=== PATIENT | female | born 1955 | race Caucasian/White ===

== ENCOUNTER 2021-12-29 23:05 | Observation (INO) ==
[2021-12-30] MEDS ORDERED: SODIUM CHLORIDE 0.9% 1000ML 500 ML IV ONE (00:22)
[2021-12-30] MEDS ORDERED: ONDANSETRON INJ 2 MG/ML 2 ML VIAL IV STA (00:22)
[2021-12-30] MEDS ORDERED: MoRPHine SULFATE 2 MG/ML CARP IV STA (00:22)
--- NOTE | 2021-12-30 00:24 | Emergency Department Note ---
Impression & Plan Acute appendicitis ADMIT ED Provider Note HPI: The patient is a 66-year-old female who presents the emergency department chief complaint of mid abdominal pain and nausea that is been ongoing throughout the afternoon today. Patient denies any episodes of vomiting. Denies any diarrhea. She states the pain is been relatively persistent. She states that she has had this pain in the past although it usually resolves relatively quickly, she states today it was constant and did not remit and therefore she came to the emergency department for further evaluation. Patient states the pain is in her mid abdomen, back, and radiates somewhat from her right flank area to the right lower quadrant. On arrival to the ED the patient is hypertensive but otherwise in no acute distress, she is saturating well on room air, she is afebrile on arrival. 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, no scleral erythema Pulmonary: Clear to auscultation bilaterally, no wheezing Cardio: Regular rate and rhythm GI: Abdomen is soft, moderate tenderness over the mid abdomen without guarding or rigidity : No suprapubic tenderness MSK: No evidence of trauma or malformation of the extremities, no edema Skin: No evidence of rash Neuro: Alert, no focal deficits Psychiatric: Cooperative upper marker: - An order was placed for continuous cardiac monitoring - Patient was noted to be in sinus rhythm with rate of 65 EKG: Rate: 58 Rhythm: Sinus rhythm Intervals: Within normal limits ST changes: No ST elevation Time: 0025 CT ABDOMEN & PELVIS With Contrast: Findings concerning for acute appendicitis with appendix measuring 10 mm in thickness at its tip with adjacent stranding. No evidence of perforation or abscess. No evidence of mucocele. Consider surgical consultation. No other acute findings. Radiologist: Enzo Armas MD Study ready at 02:23 and initial results transmitted at 02:58 Medical Decision Making: Patient presented to the emergency department with some upper abdominal discomfort as well as nausea. IV was established, lab work obtained, patient was given IV morphine and IV Zofran for her symptoms as well as IV fluids. CT imaging of the abdomen and pelvis with IV contrast shows evidence of acute appendicitis. Patient was given IV cefoxitin for infection prophylaxis. I discussed all the above findings with the patient, discussed with on-call general surgery midlevel provider, Marlon Christian, who did evaluate the patient at the bedside. Patient will be admitted to the general surgery service under the attending physician, Bridger Medina, for further care. Patient was in agreement to the above plan and she was admitted in stable condition. Diagnosis: 1. Acute appendicitis 2. Abdominal pain 3. Nausea Disposition: Admission Alberto Stern DO Emergency Medicine Past Med/Surg History Social History Smoking Status: Never smoker Preferred Language: Jamaican Feels Safe at Home: Yes Allergies Allergies Allergy/AdvReac Type Severity Reaction Status Date / Time No Known Allergies Allergy Verified 12/30/21 00:31 Home Meds Home Medications Medication Instructions Recorded Confirmed No Known Home Medications 12/30/21 12/30/21 Results & Data (ED) Vital Signs Vital Signs - 24 hr 12/29/21 23:11 12/30/21 00:49 12/30/21 02:00 Temperature 36.5 C Temperature Source Temporal Artery Scan Pulse Rate 70 Pulse Rate [Right Finger] 59 L 64 Respiratory Rate 18 20 20 Respiratory Effort / Characteristics Non-Labored Non-Labored Spontaneous Non-Labored Spontaneous Respiratory Depth Normal Normal Normal Respiratory Pattern Regular Regular Blood Pressure 164/108 H Blood Pressure [Right Arm] 185/95 H 182/101 H Blood Pressure Mean 126 Blood Pressure Mean [Right Arm] 125 128 Blood Pressure Position Sitting Blood Pressure Position [Right Arm] Sitting Sitting Pulse Oximetry 96 98 96 Oxygen Delivery Method Room Air Room Air Room Air Sepsis Recent Fever Within 48 Hours No Sepsis New/Unexplained Change in Mental Status No Sepsis Action Taken by Nursing No Action Required 12/30/21 03:31 Temperature Temperature Source Pulse Rate Pulse Rate [Right Finger] 68 Respiratory Rate 20 Respiratory Effort / Characteristics Respiratory Depth Respiratory Pattern Blood Pressure Blood Pressure [Right Arm] 192/117 H Blood Pressure Mean Blood Pressure Mean [Right Arm] 142 Blood Pressure Position Blood Pressure Position [Right Arm] Pulse Oximetry 98 Oxygen Delivery Method Room Air Sepsis Recent Fever Within 48 Hours Sepsis New/Unexplained Change in Mental Status Sepsis Action Taken by Nursing Laboratory Data Result diagrams: 12/30/21 00:35 12/30/21 00:35 Lab Results 02/07/1312/30/21 12/30/21 Range/Units 00:35 00:35 00:35 WBC 8.03 (4.8-10.8) K/uL RBC 4.83 (4.2-5.4) M/uL Hgb 13.8 (12.0-16.0) g/dL Hct 43.0 (37-47) % MCV 89.0 (80-100) fL MCH 28.6 (25-34) pg MCHC 32.1 (32-36) g/dL RDW Std Deviation 49.3 H (36.4-46.3) fL RDW Coeff of Michael 15.2 H (11.5-14.5) % Plt Count 300 (130-400) K/uL MPV 9.7 (7.4-10.4) fL Immature Gran % (Auto) 0.4 % Neut % (Auto) 57.8 % Lymph % (Auto) 32.6 % [place]undy % (Auto) 7.7 % Eos % (Auto) 1.1 % Baso % (Auto) 0.4 % Neut # (Auto) 4.64 (1.4-6.5) K/uL Lymph # (Auto) 2.62 (1.2-3.4) K/uL Grundy # (Auto) 0.62 H (0.11-0.59) K/uL Eos # (Auto) 0.09 (0-0.5) K/uL Baso # (Auto) 0.03 (0-0.2) K/uL Immature Gran # (Auto) 0.03 H (0.00-0.02) K/uL Sodium 138 (136-145) mmol/L Potassium 3.8 (3.5-5.1) mmol/L Chloride 104 (98-107) mmol/L Carbon Dioxide 27 (21-32) mmol/L Anion Gap 7 (3-11) BUN 15 (6-23) mg/dl Creatinine 0.86 (0.6-1.2) mg/dl Est Cr Clr Drug Dosing 59.2 ml/min Est GFR ( Amer) 80.5 ml/min Est GFR (Non-Af Amer) 69.4 ml/min BUN/Creatinine Ratio 17.4 (10-20) Glucose 126 H (70-99(Fasting)) mg/dl Calcium 9.0 (8.5-10.1) mg/dl Total Bilirubin 0.6 (0.2-1.0) mg/dl AST 25 (13-39) U/L ALT 36 (7-52) U/L Alkaline Phosphatase 82 (34-104) U/L Total Protein 7.2 (6.0-8.3) gm/dl Albumin 4.2 (3.4-5.0) gm/dl Globulin 3.0 (2.5-4.0) gm/dl Albumin/Globulin Ratio 1.4 (0.9-2) Lipase 9 L (11-82) U/L Urine Color Yellow Urine Appearance Clear (Clear) Urine pH 5.0 (4.5-7.5) Ur Specific [place] 1.029 (1.000-1.030) Urine Protein Negative (Negative) Urine Glucose (UA) Negative (Negative) Urine Ketones Trace H (Negative) Urine Blood Negative (Negative) Urine Nitrite Negative (Negative) Urine Bilirubin Negative (Negative) Urine Urobilinogen Negative (Negative) Ur Leukocyte Esterase Negative (Negative) Administered Medications Discontinued Medications Sodium Chloride (Nss 1000ml) 500 mls @ 999 mls/hr IV .Q31M ONE Stop: 12/30/21 00:52 Last Infusion: 12/30/21 01:56 Dose: 0 mls/hr Documented by: [id number] Admin: 12/30/21 00:35 Dose: 999 mls/hr Documented by: [id number] Cefoxitin Sodium (Mefoxin) 2,000 mg in 60 mls @ 100 mls/hr IV NOW STA Stop: 12/30/21 03:38 Last Admin: 12/30/21 03:29 Dose: 100 mls/hr Documented by: [id number] Ioversol (Optiray 320 100ml) 94 ml IV ONCE ONE Stop: 12/30/21 02:14 Last Admin: 12/30/21 02:13 Dose: 94 ml Documented by: [id number] Morphine Sulfate (Morphine Sulfate 2 Mg/Ml Carp) 2 mg IV NOW STA Stop: 12/30/21 00:23 Last Admin: 12/30/21 01:00 Dose: 2 mg Documented by: [id number] Morphine Sulfate (Morphine Sulfate 4 Mg/Ml 1 Ml Carp\Vial) 4 mg IV NOW STA Stop: 12/30/21 02:44 Last Admin: 12/30/21 03:29 Dose: 4 mg Documented by: [id number] Ondansetron HCl (Ondansetron Inj 2 Mg/Ml 2 Ml Vial) 4 mg IV NOW STA Stop: 12/30/21 00:23 Last Admin: 12/30/21 01:00 Dose: 4 mg Documented by: [id number] Discharge Plan Visit Data Chief Complaint: Abdominal Pain Stated Complaint: ABDOMINAL AND BACK PAIN,NAUSEA ED Provider: Alberto Stern Discharge Problem: Acute appendicitis Forms Stand Alone Forms: Call[facility]Call[facility] Recommend Prescriptions Prescriptions: No Action No Known Home Medications RF: 0 Referrals Referrals: Nisreen Webb MD [Primary Care Provider] - Discharge Problem: Acute appendicitis Qualifiers: Acute appendicitis type: unspecified acute appendicitis type Qualified Code(s): K35.80 - Unspecified acute appendicitis
[2021-12-30 00:57] LABS: Basophils # (auto) 0.03 K/uL (0-0.2); Basophils % (auto) 0.4 %; Eosinophils # (auto) 0.09 K/uL (0-0.5); Eosinophils % (auto) 1.1 %; Hemoglobin 13.8 g/dL (12.0-16.0); Immature Granulocytes # (auto) 0.03 K/uL (0.00-0.02); Immature Granulocytes % (auto) 0.4 %; Lymphocytes # (auto) 2.62 K/uL (1.2-3.4); Lymphocytes % (auto) 32.6 %; Mean Corpuscular Hemoglobin 28.6 pg (25-34); Mean Corpuscular Hgb Conc 32.1 g/dL (32-36); Mean Platelet Volume 9.7 fL (7.4-10.4); Monocytes # (auto) 0.62 K/uL (0.11-0.59); Monocytes % (auto) 7.7 %; Neutrophils # (auto) 4.64 K/uL (1.4-6.5); Neutrophils % (auto) 57.8 %; Platelet Count 300 K/uL (130-400); RDW Coefficient of Variation 15.2 % (11.5-14.5); RDW Standard Deviation 49.3 fL (36.4-46.3); Red Blood Count 4.83 M/uL (4.2-5.4); White Blood Count 8.03 K/uL (4.8-10.8)
[2021-12-30 01:02] LABS: Appearance Urine Clear (Clear); Bilirubin Urine Negative (Negative); Blood Urine Negative (Negative); Color Urine Yellow; Glucose Urine UA Negative (Negative); Ketones Urine Trace (Negative); Leukocyte Esterase Urine Negative (Negative); Nitrite Urine Negative (Negative); Protein Urine Negative (Negative); Specific Gravity Urine 1.029 (1.000-1.030); Urobilinogen Urine Negative (Negative)
[2021-12-30 01:16] LABS: Albumin Globulin Ratio 1.4 (0.9-2); Albumin Level 4.2 gm/dl (3.4-5.0); BUN Creatinine Ratio 17.4 (10-20); Bilirubin,Total 0.6 mg/dl (0.2-1.0); Creatinine Clr Calc Pharmacy 59.2 ml/min; Est GFR (African American) 80.5 ml/min; Est GFR (Non-African American) 69.4 ml/min; Potassium 3.8 mmol/L (3.5-5.1); Total Protein 7.2 gm/dl (6.0-8.3)
[2021-12-30] MEDS ORDERED: OPTIRAY 320 100ml IV ONE (02:13)
[2021-12-30] MEDS ORDERED: MoRPHine SULFATE 4 MG/ML 1 ML CARP\\VIAL IV STA (02:43)
[2021-12-30] MEDS ORDERED: cefOXitin 2,000 MG/60 ML BAG IV STA (03:03)
--- NOTE | 2021-12-30 03:17 | History & Physical Report ---
Date of Service December 30, 2021 Assessment & Plan (1) Acute appendicitis: Plan: Due to the patient's abdominal pain and findings on imaging she will be admitted to the hospital we will proceed as follows: Patient be made n.p.o. IV fluids will be provided for hydration Analgesics will be provided Antiemetics will be provided We will administer antibiotics. The treating emergency physician has already ordered the first dose of cefoxitin We will await results of Covid testing Due to the finding on imaging we will tentatively plan for laparoscopic, possible open appendectomy. Procedure performed by Dr. Welch. We discussed the risks, benefits, and alternatives with the patient and she agrees to proceed Additional recommendations be forthcoming based on operative findings and her clinical course thereafter after as it unfolds. SCDs were used for DVT prevention, no chemical means of use due to planned surgery. The patient be a level 1 full code. History of Present Illness Chief Complaint: Abdominal pain Primary Care Provider: Nisreen Alva MD This is a 66-year-old female who presented to [facility] emergency department secondary to abdominal pain that began yesterday around noon. Patient says that the pain is mostly located periumbilical or just superior to her umbilicus without radiation. She does not note any palliative factors. She notes that the pain was relieved somewhat with medicines that were given in the emergency department. She notes nausea without vomiting. She denies any fevers, shakes, chills. She notes she has had prior surgeries in the form of a vaginal hysterectomy but has not had any other abdominal surgeries. Her most recent oral intake was on 12/29/2021 at approximately 10:30 AM. In the emergency department the patient did have labs and imaging which I independently reviewed. An EKG showed sinus bradycardia without any changes indicative of acute ischemia. Labs included a CBC her white blood cell count, hemoglobin, hematocrit, and platelet count are all within normal range. Chemistry profile showed sodium, potassium, BUN, and creatinine were all within normal range. There is no significant elevation of LFTs or lipase. Urinalysis was not indicative of urinary tract infection. CT scan of the abdomen and pelvis showed the patient had a dilated appendix measuring approximately 10 mm in thickness with adjacent stranding at the tip with no evidence of perforation or abscess. These findings were concerning for acute appendicitis. Chest x-ray is negative for pneumonia. Covid test has been ordered and is pending. 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 High cholesterol Obesity (BMI 30.0-34.9) Surgical History H/O partial thyroidectomy H/O: hysterectomy Social History Smoking Status: Never smoker Hx Alcohol Use: No Hx Substance Use: No Preferred Language: Iraqi Mechanical Estimator Required: No Beliefs That Will Affect Care: None Current Living Situation: Family Current Living Situation Comment: lives at home with daughter Other Information That Helps Us Care for You: No Feels Safe at Home: Yes Safety Concerns: Feels Safe At This Time Assistive Devices: Glasses Assistive Devices Comment: prosthetic eye right Review of Systems Constitutional: no fever and no chills Eyes: no diplopia Ear, Nose, Mouth, Throat: no ear pain Respiratory: no cough and no dyspnea Cardiovascular: no chest pain Gastrointestinal: + abdominal pain and + nausea; no vomiting Genitourinary: no dysuria Musculoskeletal: no back pain Integumentary: no rash Neurologic: no localized weakness Physical Exam Constitutional: well developed and well nourished; no acute distress Eyes: no conjunctival abnormality ENMT: Ears: no hearing impairment and no external ear abnormality Mouth: no oropharynx abnormality Neck: trachea midline Respiratory: normal respiratory effort; no respiratory distress and no labored breathing Cardiovascular: Rate/Rhythm: regular rate and regular rhythm Gastrointestinal (Abdomen): Abdomen is soft, nondistended, with positive bowel sounds. No rebound tenderness or guarding was noted. Pain was noted with palpation in the periumbilical area with the greatest area of severity just superior to the umbilicus. There was slight pain with palpation in the right lower quadrant McBurney's point with very deep palpation. Musculoskeletal: No calf tenderness Skin: no rashes Neurologic: moves all extremities Psychiatric: A+Ox3, euthymic affect Results & Data Results & Data ([facility]) Vital Signs (Past 12 Hours) Vital Signs Temp Pulse Pulse Resp BP BP Pulse Ox 12/30/21 02:00 64 20 182/101 H 96 12/30/21 00:49 59 L 20 185/95 H 98 12/29/21 23:11 36.5 C 70 18 164/108 H 96 Supervising Physician Co-Signing Physician Notes I personally saw and evaluated the patient with Jeevan Christian PA-C and agree with the assessment and plan. 66-year-old female with acute appendicitis Admit to surgery Keep n.p.o. IV antibiotics Plan to go to the OR for laparoscopic appendectomy, possible open Consent obtained, risks discussed including bleeding, infection, leak, abscess PG Care Time/CCT Total # of Minutes Spent Total Time Spent with Patient: Total time spent is greater than 50% in coordination of care (as documented) at patient's floor/unit and/or counseling patient: Coding Level of Care Code INT OBSERVATION CARE 70M LVL 3 Diagnoses Acute appendicitis K35.80
[2021-12-30] MEDS ORDERED: MoRPHine SULFATE 4 MG/ML 1 ML CARP\\VIAL IV PRN ×2 (03:25→12:09)
[2021-12-30] MEDS ORDERED: ONDANSETRON INJ 2 MG/ML 2 ML VIAL IV PRN ×2 (03:25→09:49)
[2021-12-30] MEDS ORDERED: ACETAMINOPHEN 1,000 MG/100 ML VIAL IV PRN (03:25)
[2021-12-30] MEDS: LACTATED RINGER'S 1,000 ML IV SCH ×2 (04:13→21:14)
--- NOTE | 2021-12-30 07:51 | CT Scan Report ---
ABDOMEN AND PELVIS CT WITH IV CONTRAST CT DOSE: 776.30 mGy.cm HISTORY: mid abdominal pain TECHNIQUE: Multiaxial CT images of the abdomen and pelvis were performed following the use of intrave nous contrast. A dose lowering technique was utilized adhering to the principles of ALARA. COMPARISON STUDY: None. FINDINGS: Mild dependent changes seen at the lung bases. No pneumoperitoneum. No pneumatosis. No frac tures within the visualized osseous structures. There is a 2 cm hypodense lesion within the hepatic d ome likely representing a cyst. The gallbladder, pancreas, spleen, and adrenal glands are unremarkabl e. The kidneys enhance normally. No hydronephrosis. No retroperitoneal lymphadenopathy. Normal calibe r abdominal aorta. Prior hysterectomy. The bladder is unremarkable. No pelvic free fluid. A few colon ic diverticula. No evidence for acute diverticulitis. No evidence for bowel obstruction. The mid to d istal portion of the appendix is distended and fluid-filled measuring up to 1 cm in diameter. There i s minimal periappendiceal fat stranding. Therefore, these findings are concerning for acute appendici tis. A small mucocele could also have a similar appearance. No perforation or abscess identified. The re is are unremarkable. IMPRESSION: The mid to distal portion of the appendix is distended and fluid-filled measuring up to [address] There is minimal periappendiceal fat stranding. Therefore, these findings are concerning for acu te appendicitis. A small mucocele could also have a similar appearance. Therefore, surgical consultat ion advised. ACT 112: Negative or not required by law. Electronically signed by: Marcos Frye M.D. 12/30/2021 7:50 AM
--- NOTE | 2021-12-30 08:43 | XRay Report ---
XR chest 1V portable HISTORY: Generalized abdominal pain, nausea COMPARISON: None. FINDINGS: The lungs are clear. Cardiac silhouette is top normal in size. No pleural effusions. No pne umothorax. IMPRESSION: No acute process. ACT 112: Negative or not required by law. Electronically signed by: Marcos Frye M.D. 12/30/2021 8:41 AM
--- NOTE | 2021-12-30 08:52 | Anesthesiology Consultation ---
Date of Service December 30, 2021 Assessment & Plan Chart Review Chart Review: Acceptable Risk for Surgery History Surgery Operation Date: 12/30/21 10:05 Proposed Procedures p Laparoscopic Appendectomy - Bridger Welch DO Height/Weight Height: 5 ft Weight: 80.7 kg Allergies Allergy/AdvReac Type Severity Reaction Status Date / Time No Known Allergies Allergy Verified 12/30/21 00:31 Medications Home Medications Medication Instructions Recorded Confirmed Last Taken oxycodone 5 mg tablet 5 - 10 mg PO .[id number] PRN #15 tab 12/30/21 Unknown Active Medications Generic Name Dose Route Start Last Admin Trade Name Freq PRN Reason Stop Dose Admin Lactated Ringer's 1,000 mls @ 75 mls/hr 12/30/21 03:30 12/30/21 04:13 Lr IV 01/29/22 03:29 75 mls/hr .[id number] RICHI Administration NPO Date Last Intake of Fluids: 12/29/21 Time Last Intake of Fluids: 10:30 Date Last Intake of Solids: 12/29/21 Time Last Intake of Solids: 10:30 Past Medical History Medical History (Updated 12/30/21 @ 08:48 by Augustine Hutton MD) 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 High cholesterol Obesity (BMI 30.0-34.9) Past Surgical History Surgical History H/O partial thyroidectomy H/O: hysterectomy Social History Smoking Status: Never smoker Hx Alcohol Use: No Hx Substance Use: No Physical Exam Vital Signs Last Vital Signs Temp 36.6 C 12/30/21 08:45 Pulse 58 L 12/30/21 08:45 Resp 16 12/30/21 08:45 BP 184/82 H 12/30/21 08:45 Pulse Ox 95 12/30/21 08:45 Testing Laboratory Results 12/30/21 00:35 12/30/21 00:35 Urine Color Yellow 12/30/21 00:35 Urine Appearance Clear (Clear) 12/30/21 00:35 Urine pH 5.0 (4.5-7.5) 12/30/21 00:35 Ur Specific Echo 1.029 (1.000-1.030) 12/30/21 00:35 Urine Protein Negative (Negative) 12/30/21 00:35 Urine Glucose (UA) Negative (Negative) 12/30/21 00:35 Urine Ketones Trace (Negative) H 12/30/21 00:35 Urine Nitrite Negative (Negative) 12/30/21 00:35 Ur Leukocyte Esterase Negative (Negative) 12/30/21 00:35 Electrocardiogram Date: 12/29/21 Findings: + SB @ (58) Chest X-Ray Date: 12/30/21 Findings: + NAD
[2021-12-30] MEDS ORDERED: MIDAZOLAM HCL 1 MG/ML 2ML VIAL ONE (09:02)
[2021-12-30] MEDS ORDERED: fentaNYL citrate 100 MCG/2 ML VIAL ONE ×2 (09:02→09:08)
[2021-12-30] MEDS ORDERED: PROPOFOL IV EMULSION 10 MG/ML 20 ML VIAL IV ONE (09:03)
[2021-12-30] MEDS ORDERED: LIDOCAINE 2% 2 ML VIAL/AMP(20MG/ML) INFIL ONE (09:03)
[2021-12-30] MEDS ORDERED: BUPIVACAINE/EPINEPHRINE 0.25% 1:200,000 30 ML VIAL ONE (09:48)
[2021-12-30] MEDS ORDERED: ePHEDrine sulfate 50 MG/ML AMP IV PRN (09:49)
[2021-12-30] MEDS ORDERED: ATROPINE SULFATE 0.1 MG/ML 10ML SYR IV PRN (09:49)
[2021-12-30] MEDS ORDERED: fentaNYL citrate 100 MCG/2 ML VIAL IV PRN (09:49)
[2021-12-30] MEDS ORDERED: GLYCOPYRROLATE 0.2 MG/ML VIAL ONE (10:32)
[2021-12-30] MEDS ORDERED: ONDANSETRON INJ 2 MG/ML 2 ML VIAL ONE (10:32)
[2021-12-30] MEDS ORDERED: NEOSTIGMINE METHYLSULFATE 1 MG/ML 10ML VIAL ONE (10:32)
[2021-12-30] MEDS ORDERED: ROCURONIUM BROMIDE 10 MG/ML 5 ML VIAL IV ONE (10:32)
--- NOTE | 2021-12-30 10:47 | Post Operative Brief Note ---
PG Immediate Post Op with CF Date of Surgery December 30, 2021 Pre & Post Diagnosis Operation Date: 12/30/21 10:05 Pre-Op Diagnosis: Acute Appendicitis Post-Op Diagnosis: Acute Appendicitis without perforation I identified the patient and participated in the time-out.: Yes Procedure Operation Date: 12/30/21 10:05 Actual Procedures p Laparoscopic Appendectomy(Not Applicable) - Bridger Welch DO Surgeon Bridger Welch DO Staff Midwife Augustine Patricio PA-C Estimated Blood Loss 5 Findings See Below Mildly inflamed injected dilated appendix Specimens Specimen Description: A. Appendix Drains Nguyen Catheter Anesthesia Type General Complications none Disposition Disposition: Recovery Room
--- NOTE | 2021-12-30 10:50 | Operative Report ---
PG Post Operative Report Pre & Post Diagnosis Operation Date: 12/30/21 10:05 Pre-Op Diagnosis: Acute Appendicitis Post-Op Diagnosis: Acute Appendicitis without perforation I identified the patient and participated in the time-out.: Yes Procedure Operation Date: 12/30/21 10:05 Actual Procedures p Laparoscopic Appendectomy(Not Applicable) - Bridger Welch DO Surgeon Bridger Welch DO [employer] Augustine Patricio PA-C Estimated Blood Loss 5 Findings See Below Mildly inflamed, injected, dilated appendix Specimens Appendix to pathology Drains None Anesthesia Type General Complications none Disposition Disposition: Recovery Room Indications 66-year-old female with acute appendicitis Description of Procedure The patient was brought to the OR and placed in the supine position and SCD's placed. At this time she underwent general endotracheal anesthesia without incident. At this time a Nguyen catheter was placed under sterile conditions. Her abdomen was prepped and draped in the usual sterile fashion. She was given appropriate pre-operative antibiotics. A timeout was called, the procedure was verified as Laparoscopic appendectomy, possible open. Surgical, anesthesia and nursing teams agreed and the procedure was begun. After injection of 0.25% Marcaine with epinephrine, a supraumbilical incision was made using a #11 blade scalpel and carried down to the fascia with a hemostat. The abdomen was then elevated with towel clamps and entered using the Veress needle confirming position using the saline drop test. Pneumoperitoneum was established and 5mm trocar was placed. Laparoscope was introduced. No injury was seen from our entrance to the abdomen. At this time a 5mm suprapubic port and 12mm LLQ port were placed under direct visualization. The patient was placed in Trendelenburg and rotated to the left. At this time the appendix was visualized and the tip was freed and elevated toward the abdominal wall. The appendix appeared mildly inflamed injected and dilated. A window was created in the mesoappendix at the base of the appendix. A 45mm purple load stapler was then fired across the base of the appendix which appeared healthy. The mesoappendix was then taken using Harmonic device. The appendix was then placed in an Endocatch bag and removed through the LLQ port site. Staple line was inspected and was intact. Hemostasis was complete. The 12 mm port was then closed at the fascial level using a 0 Vicryl suture using the suture passer. All ports were removed under direct visualization and no bleeding was noted. The abdomen was desufflated and the skin was closed using 4-0 Monocryl in a subcuticular fashion. Sterile dressings were applied. Nguyen catheter was removed. The patient was then awakened from anesthesia having remained stable throughout the entire case and transported to PACU. All needle and sponge counts were correct x 2. The physician assistant family teacher was present and scrubbed for the entire case. He was essential in positioning, prepping and draping the patient, driving the laparoscope, retraction and exposure, closure of the incisions and placement of the dressings. I attest to the content of the Intraoperative Record and any orders documented therein. Any exceptions are noted below.
[2021-12-30] MEDS ORDERED: oxyCODONE HCL IR 5 MG TAB (IMMEDIATE RELEASE) PO PRN (12:09)
[2021-12-30] MEDS ORDERED: MoRPHine SULFATE 2 MG/ML CARP IV PRN (12:09)
[2021-12-30] MEDS: cefOXitin 2,000 MG in DEXTROSE 5% 50 ML IV SCH ×3 (12:10→21:15)
--- NOTE | 2021-12-30 12:16 | Anesthesiology Progress Note ---
Date of Service December 30, 2021 Anesthesia Post Procedure Vital Signs Vital Signs: Temp Pulse Pulse Pulse Resp BP BP 12/30/21 11:40 97.5 F L 55 L 17 124/68 12/30/21 11:30 58 L 15 125/63 12/30/21 11:20 55 L 14 138/69 12/30/21 11:10 71 14 155/80 H 12/30/21 11:04 97.7 F 85 18 176/89 H 12/30/21 08:45 97.9 F 58 L 16 184/82 H 12/30/21 06:59 97.5 F L 57 L 16 165/79 H 12/30/21 04:45 97.5 F L 60 17 152/84 H 12/30/21 04:24 59 L 20 12/30/21 03:31 68 20 12/30/21 02:00 64 20 12/30/21 00:49 59 L 20 12/29/21 23:11 97.7 F 70 18 164/108 H BP Pulse Ox 12/30/21 11:40 96 12/30/21 11:30 95 12/30/21 11:20 95 12/30/21 11:10 97 12/30/21 11:04 99 12/30/21 08:45 95 12/30/21 06:59 95 12/30/21 04:45 96 12/30/21 04:24 151/81 H 94 12/30/21 03:31 192/117 H 98 12/30/21 02:00 182/101 H 96 12/30/21 00:49 185/95 H 98 12/29/21 23:11 96 Pain Intensity Abdomen: Pain Intensity: 1 Transfer of Care Handoff Completed per policy Notes Mental Status: alert / awake / arousable and participated in evaluation Patient Amnestic to Procedure: Yes Nausea / Vomiting: adequately controlled Pain: adequately controlled Airway Patency, RR, SpO2: stable & adequate BP & HR: stable & adequate Hydration State: stable & adequate Anesthetic Complications: no major complications apparent and Pt Satisfied with anesthetic care
--- NOTE | 2021-12-30 23:04 | Electrocardiogram Report ---
Test Reason : Blood Pressure : / mmHG Vent. Rate : 058 BPM Atrial Rate : 058 BPM P-R Int : 120 ms QRS Dur : 082 ms QT Int : 450 ms P-R-T Axes : - degrees QTc Int : 441 ms Sinus bradycardia Otherwise normal ECG When compared with ECG of 02-OCT-2013 17:00, No significant change was found Confirmed by Mehran Mora ([id number]) on 12/30/2021 11:04:00 PM Referred By: REFERRED SELF Confirmed By:Mehran Mora
[2021-12-31] MEDS: cefOXitin 2,000 MG in DEXTROSE 5% 50 ML IV SCH ×3 (04:50→16:04)
--- NOTE | 2021-12-31 08:23 | Surgery Progress Note ---
Date of Service December 31, 2021 Assessment & Plan (1) Acute appendicitis: Plan: POD#1 lap appendectomy Patient doing well. VSS, afebrile Advance diet as tolerates. D/c IVF Will plan on discharge to home today, dispo instructions reviewed F/u with Dr. Welch in 1-2 weeks Admission and Anticipated Discharge Date Admission Date: December 30, 2021 Supervising Physician Co-Signing Physician Notes I personally saw and evaluated patient with Rachael Peter PA-C and agree with the assessment and plan. 66-year-old female postoperative day 1 laparoscopic appendectomy for acute appendicitis She is doing well and is stable for discharge home today She will follow-up with me in 2 weeks Subjective Patient is feeling well. Currently tolerating full liquids, no nausea/vomiting. Pain is well controlled. No complaints. Physical Exam Physical Exam: awake/alert Respiratory: normal respiratory effort Gastrointestinal (Abdomen): Inspection/Auscultation: + abdominal surgical incision (c/d/i) Percussion/Palpation: abdomen soft; abdomen nontender Results & Data ([facility]) Vital Signs (Past 12 Hours) Vital Signs Temp Pulse Resp BP Pulse Ox 12/31/21 07:25 36.7 C 63 18 131/78 92 12/31/21 03:21 36.7 C 63 16 148/77 H 95 12/30/21 22:43 36.8 C 60 16 138/75 94 PG Care Time/CCT Total # of Minutes Spent Total Time Spent with Patient: Total time spent is greater than 50% in coordination of care (as documented) at patient's floor/unit and/or counseling patient: Coding Level of Care Code None Diagnoses Acute appendicitis K35.80 Acute appendicitis type: unspecified acute appendicitis type (1) Acute appendicitis Acute appendicitis type: unspecified acute appendicitis type Qualified Code(s): K35.80 - Unspecified acute appendicitis
[2021-12-31] MEDS: LACTATED RINGER'S 1,000 ML IV SCH (12:30)
--- NOTE | 2022-01-01 14:59 | Discharge Summary ---
Date of Service December 31, 2021 Admission HPI Per Admitting Provider This is a 66-year-old female who presented to [facility] emergency department secondary to abdominal pain that began yesterday around noon. Patient says that the pain is mostly located periumbilical or just superior to her umbilicus without radiation. She does not note any palliative factors. She notes that the pain was relieved somewhat with medicines that were given in the emergency department. She notes nausea without vomiting. She denies any fevers, shakes, chills. She notes she has had prior surgeries in the form of a vaginal hysterectomy but has not had any other abdominal surgeries. Her most recent oral intake was on 12/29/2021 at approximately 10:30 AM. In the emergency department the patient did have labs and imaging which I independently reviewed. An EKG showed sinus bradycardia without any changes indicative of acute ischemia. Labs included a CBC her white blood cell count, hemoglobin, hematocrit, and platelet count are all within normal range. Chemistry profile showed sodium, potassium, BUN, and creatinine were all within normal range. There is no significant elevation of LFTs or lipase. Urinalysis was not indicative of urinary tract infection. CT scan of the abdomen and pelvis showed the patient had a dilated appendix measuring approximately 10 mm in thickness with adjacent stranding at the tip with no evidence of perforation or abscess. These findings were concerning for acute appendicitis. Chest x-ray is negative for pneumonia. Covid test has been ordered and is pending. At the time of my interview she was resting comfortably in bed and she was in no distress Principal Diagnosis Acute appendicitis Discharge Exam Constitutional WD/WN, vitals as above Gastrointestinal (Abdomen) Inspection/Auscultation: + abdominal surgical incision (dressings dry); abdomen not distended Percussion/Palpation: abdomen soft Discharge Data Allergies Allergy/AdvReac Type Severity Reaction Status Date / Time No Known Allergies Allergy Verified 12/30/21 00:31 Consultations 12/30/21 03:51 ED Decision to Admit Stat Procedures Performed Operation Date: 12/30/21 10:05 Actual Procedures p Laparoscopic Appendectomy(Not Applicable) - Bridger Welch DO Ordered Studies 12/30/21 00:21 CT abd pelvis IV con only Urgent Hospital Course (1) Acute appendicitis: 66 y/o female presented to the ER with abdominal pain. Although white count was 8,000, CT was consistent with acute appendicitis. She was admitted to the surgical floor overnight and taken to the operating room in the morning for laparoscopic appendectomy. Procedure was well tolerated and she was returned to the surgical floor. She was able to advance diet slowly during the day. By the next day she was tolerating oral analgesics and was stable for discharge home. Total Time Total Time Spent Total Time Spent (In Minutes): 15 Discharge Plan Discharge Items Patient Disposition: Home - Self-Care Reason For Visit: APPY Discharge Diagnosis: appendectomy Activity: Per Instructions section Lifting: No more than 10 pounds Bathing Comment: you may shower over bandages starting 12/31/21; no soaking in tubs/pools Exercise/Sports: Wait until after follow-up appointment Driving/Machine Use: no driving while taking narcotics for pain Non-emergency contact: Surgeon Call non-emergency contact if: you have any medication questions, your pain is not controlled, your pain is concerning for you, you have a fever, your temperature is above 101.5, your wound has increased redness, your wound has increased drainage and your wound pain has increased Follow-up/Referrals: Bridger Welch DO [Physician] - 01/14/22 2:20 pm (Please call to schedule follow up in clinic within 2 weeks) Nisreen Webb MD [Primary Care Provider] - Diet: Regular Addtl Attending Provider Instructions: You may remove your outer surgical dressings on 01/01/22. You will have small white bandages on underneath called steri-strips. You may shower with the steri- strips in place...they will tend to fall off on their own within 7-10 days. You may purchase Tylenol and/or Ibuprofen over the counter if needed for pain control over the next couple of days. Take Ibuprofen with food. Pending Studies at Discharge: Yes Studies:: surgical pathology Stand-Alone Forms: [employer], Work/School Release, Smoking Cessation Medications and DC Order Prescriptions: New oxycodone 5 mg tablet 5 - 10 mg PO .[id number] PRN (Reason: pain, for initial therapy, max 6 tabs per day) Qty: 15 RF: 0 Discharge Orders: Discharge Order (Routine); Ordered 12/31/21 Ordered By: Rachael E. Armold Krames/Other Patient Handouts: Appendectomy Admission Data Admit Date/Time: 12/30/21 03:25 Attending Provider: Bridger Welch Admit Provider: Bridger Welch Primary Care Provider: Nisreen Webb Other Providers: Bridger Welch Other Interventions: Discharge Summary Assessment (RN) Last Done: 12/31/21 14:06 Coding Level of Care Code D/C DAY MANAGEMENT <30 MINS Diagnoses Acute appendicitis K35.80 Acute appendicitis type: unspecified acute appendicitis type
== END 2021-12-31 17:38 | disposition home or self-care (01) ==
LOC: ED 23:05 → 3E 23:05
DX: K35.80 Unspecified acute appendicitis